=== PATIENT | male | born 1985 | race Caucasian/White ===

== ENCOUNTER 2024-05-08 08:23 | Outpatient (CLI) | payer OTHER | END 2024-05-08 08:24 | disposition home or self-care (01) | LOC: CSHRAD 08:23 | PROVIDERS: ATTEND Family Medicine | DX: R74.8 Abnormal levels of other serum enzymes (principal); R17 Unspecified jaundice; K76.9 Liver disease, unspecified | CPT/HCPCS: 76700 ==